=== PATIENT | female | born 1935 | race Caucasian/White ===

== ENCOUNTER 2016-08-26 10:57 | Day surgery (SDC) | payer MEDICARE, OTHER ==
--- NOTE | ~2016-08-26 | EGD ---
EGD REPORT [facility] [address] [address] NAME: GILLES CLARK : [birth year] STATUS : REG [facility]#: [id number] AGE: 81 ADM/REG DATE : 08/26/16 MR#: [id number] REPORT SERV DATE: 08/26/16 DICTATED BY: MAITE HERNADEZ DATE: 08/26/16 REPORT STATUS : Draft TRANSCRIBED BY: [facility] DATE: 08/26/16 Endoscopy Center Patient Name: Gilles Clark Date of : 1935 Attending MD: MAITE HERNADEZ MD Procedure Date No Time: 08/26/2016 Procedure: Upper GI endoscopy Indications: Epigastric abdominal pain Referring MD: BRIANA BELLO Medicines: Monitored Anesthesia Care Complications: No immediate complications. Procedure: Pre-Anesthesia Assessment: - ASA Grade Assessment: III - A patient with severe systemic disease. After obtaining informed consent, the endoscope was passed under direct vision. Throughout the procedure, the patient's blood pressure, pulse, and oxygen saturations were monitored continuously. The GIF [id number] was introduced through the mouth, and advanced to the second part of duodenum. The upper GI endoscopy was accomplished without difficulty. The patient tolerated the procedure well. Findings: Localized mild erythema was found at the gastroesophageal junction. Biopsies were taken with a cold forceps for histology. The entire examined stomach was normal. The cardia and gastric fundus were normal on retroflexion. The duodenal bulb and 2nd part of the duodenum were normal. Biopsies were taken with a cold forceps for histology. Impression: - Erythema at the gastroesophageal junction. Biopsied. - Normal stomach. - Normal duodenal bulb and 2nd part of the duodenum. Biopsied. Recommendation: - Follow an antireflux regimen. - Continue present medications. Procedure Code(s): --- Professional --- 44177, Esophagogastroduodenoscopy, flexible, transoral; with biopsy, single or multiple Diagnosis Code(s): --- Professional --- K22.9, Disease of esophagus, unspecified EGD REPORT [facility] [address] [id number] NAME: GILLES CLARK : [birth year] STATUS : REG [facility] PAT#: [id number] AGE: 81 ADM/REG DATE : 08/26/16 MR#: [id number] REPORT SERV DATE: 08/26/16 DICTATED BY: MAITE HERNADEZ DATE: 08/26/16 REPORT STATUS : Draft TRANSCRIBED BY: [employer] DATE: 08/26/16 R10.13, Epigastric pain CPT copyright 2013 [employer]. All rights reserved. The codes documented in this report are preliminary and upon sweatband maker review may be revised to meet current compliance requirements. MAITE HERNADEZ MD 08/26/2016 1:54 PM This report has been signed electronically. Number of Addenda: 0 Note Initiated On: 08/26/2016 1:38 PM Scope Withdrawal Time 0 hours 0 minutes 0 seconds [id number] [id number]
--- NOTE | ~2016-08-26 | EGD ---
EGD REPORT [facility] [address] [place] [id number] NAME: GILLES CLARK : [birth year] STATUS : REG [facility]#: [id number] AGE: 81 ADM/REG DATE : 08/26/16 MR#: [id number] REPORT SERV DATE: 08/26/16 DICTATED BY: MAITE HERNADEZ DATE: 08/26/16 REPORT STATUS : Draft [facility]ANSCRIBED BY: [facility] DATE: 08/26/16 Endoscopy Center Patient Name: Gilles Clark Date of : 1935 Attending MD: MAITE HERNADEZ MD Procedure Date No Time: 08/26/2016 Procedure: Colonoscopy Indications: Change in bowel habits, Constipation, Diarrhea, Fecal incontinence Referring MD: BRIANA BELLO Medicines: Monitored Anesthesia Care Complications: No immediate complications. Procedure: Pre-Anesthesia Assessment: - ASA Grade Assessment: III - A patient with severe systemic disease. After I obtained informed consent, the scope was passed under direct vision. Throughout the procedure, the patient's blood pressure, pulse, and oxygen saturations were monitored continuously. The CF [id number] was introduced through the anus and advanced to the cecum, identified by appendiceal orifice and ileocecal valve. The colonoscopy was performed with moderate difficulty due to significant looping, a tortuous colon and the patient's body habitus. Successful completion of the procedure was aided by applying abdominal pressure. The patient tolerated the procedure fairly well. The quality of the bowel preparation was adequate. Findings: The digital rectal exam was normal. Pertinent negatives include no palpable rectal lesions. Diverticula were found in the sigmoid colon. Two sessile polyps were found in the ascending colon. The polyps were 5 to 7 mm in size. These polyps were removed with a cold biopsy forceps. Resection and retrieval were complete. The ascending colon appeared normal. Biopsies were taken with a cold forceps for evaluation of microscopic colitis. The sigmoid colon appeared normal. Biopsies were taken with a cold forceps for evaluation of microscopic colitis. Two sessile polyps were found in the rectum. The polyps were 6 to 9 mm in size. These polyps were removed with a cold biopsy forceps. Resection and retrieval were complete. Hemorrhoids were found during retroflexion and were moderate. Impression: - Diverticulosis in the sigmoid colon. EGD REPORT [address] [place]. [address] NAME: GILLES CLARK : 39 STATUS : REG [facility] PAT#: [id number] AGE: 81 ADM/REG DATE : 08/26/16 MR#: [id number] REPORT SERV DATE: 08/26/16 DICTATED BY: MAITE HERNADEZ DATE: 08/26/16 REPORT STATUS : Draft TRANSCRIBED BY: [employer] DATE: 08/26/16 - Two 5 to 7 mm polyps in the ascending colon. Resected and retrieved. - The ascending colon is normal. Biopsied. - The sigmoid colon is normal. Biopsied. - Two 6 to 9 mm polyps in the rectum. Resected and retrieved. - Hemorrhoids. Recommendation: - Patient has a contact number available for emergencies. The signs and symptoms of potential delayed complications were discussed with the patient. Return to normal activities tomorrow. Written discharge instructions were provided to the patient. - Regular diet. - Continue present medications. - Await pathology results. - Repeat colonoscopy is not recommended for screening purposes. - Return to GI clinic in 3 weeks. Procedure Code(s): --- Professional --- 93571, Colonoscopy, flexible, proximal to splenic flexure; with biopsy, single or multiple Diagnosis Code(s): --- Professional --- K64.9, Unspecified hemorrhoids K57.30, Diverticulosis of large intestine without perforation or abscess without bleeding K62.1, Rectal polyp D12.2, Benign neoplasm of ascending colon R19.4, Change in bowel habit K59.00, Constipation, unspecified R19.7, Diarrhea, unspecified R15.9, Full incontinence of feces CPT copyright 2013 [employer]. All rights reserved. The codes documented in this report are preliminary and upon security professionals review may be revised to meet current compliance requirements. MAITE HERNADEZ MD 08/26/2016 2:26 PM This report has been signed electronically. Number of Addenda: [address] [facility] [address] [id number] NAME: GILLES CLARK : 39 STATUS : REG [facility] [place] PAT#: [id number] AGE: 81 ADM/REG DATE : 08/26/16 MR#: [id number] REPORT SERV DATE: 08/26/16 DICTATED BY: MAITE HERNADEZ DATE: 08/26/16 REPORT STATUS : Draft TRANSCRIBED BY: [employer] DATE: 08/26/16 Note Initiated On: 08/26/2016 1:32 PM Scope Withdrawal Time 0 hours 14 minutes 56 seconds [address] [id number]
[~2016-08-26 10:57] MED LIST: AMARYL2 PO; ATEN50 PO; C5 PO; GLUCOPHAGE1000 MG PO; KDUR20 PO; KLOR-CON M2020 MEQ PO; L20 PO; MULTIVITAMI1 PO; NEUR100 PO; TENORETIC1 TAB PO; TRICOR145 PO; TYLENOL ARTH650 MG PO; VITAMIN B-121000 MC1 PO; X5 PO; Z100 PO
[2016-08-26 11:35] LABS: INTERNATIONAL NORMAL RATI 1.6 UNITS (-); PROTIME (NOT ORD) 18.7 SEC (12.0-14.5)
== END 2016-08-26 23:59 | disposition home or self-care (01) ==
LOC: DMU 10:57
PROVIDERS: Anesthesiology; Internal Medicine Gastroenterology
PROC: 0DBK8ZX Excision of Ascending Colon, Via Natural or Artificial Opening Endoscopic, Diagnostic (ICD-10-PCS; 2016-08-26)
PROC: 0DBP8ZX Excision of Rectum, Via Natural or Artificial Opening Endoscopic, Diagnostic (ICD-10-PCS; 2016-08-26)
PROC: 0DBN8ZX Excision of Sigmoid Colon, Via Natural or Artificial Opening Endoscopic, Diagnostic (ICD-10-PCS; 2016-08-26)
PROC: 0DB58ZX Excision of Esophagus, Via Natural or Artificial Opening Endoscopic, Diagnostic (ICD-10-PCS; principal; 2016-08-26 12:30)
PROC: 0DB98ZX Excision of Duodenum, Via Natural or Artificial Opening Endoscopic, Diagnostic (ICD-10-PCS; 2016-08-26 12:30)
DX: D12.2 Benign neoplasm of ascending colon (principal); K62.1 Rectal polyp; K64.9 Unspecified hemorrhoids; K57.30 Diverticulosis of large intestine without perforation or abscess without bleeding; K59.00 Constipation, unspecified; K22.9 Disease of esophagus, unspecified; I10 Essential (primary) hypertension; E78.00 Pure hypercholesterolemia, unspecified; I48.0 Paroxysmal atrial fibrillation; E11.9 Type 2 diabetes mellitus without complications; E66.01 Morbid (severe) obesity due to excess calories; M19.90 Unspecified osteoarthritis, unspecified site; Z88.5 Allergy status to narcotic agent; Z88.8 Allergy status to other drugs, medicaments and biological substances; Z79.01 Long term (current) use of anticoagulants; Z79.899 Other long term (current) drug therapy; Z90.49 Acquired absence of other specified parts of digestive tract; Z98.890 Other specified postprocedural states
CPT/HCPCS: 82962; 85610; 88305